=== PATIENT | male | born 1975 | race Caucasian/White ===

== ENCOUNTER 2021-04-09 16:17 | Emergency (ER) | payer OTHER ==
[~2021-04-09] VITALS: Ht 175.3 cm; Wt 81.7 kg
[2021-04-09] MEDS ORDERED: LEVO-T100 MCG PO (16:34)
[2021-04-09 16:54] LABS: HEMATOCRIT 49.3 % (42.0-52.0); HEMOGLOBIN 16.6 gm/dL (14.0-18.0); MCH 31.3 pg (26.0-34.0); MCHC 33.8 g/dL (28.0-37.0); MCV 92.8 fL (80.0-100.0); MPV 8.7 fl. (7.2-11.1); NUCLEATED RBCS 0 /100WBC; PLATELET COUNT* 239 thou/uL (150-400); RBC 5.31 mil/uL (4.50-6.00); RDW-CV 14.5 % (10.5-14.5); WBC 22.3 thou/uL (4.0-11.0)
[2021-04-09 17:00] LABS: CALCIUM 8.4 mg/dL (8.5-10.1); CREATININE 1.3 mg/dL (0.6-1.3); POTASSIUM 3.5 mmol/L (3.5-5.1)
[2021-04-09 17:04] LABS: ALBUMIN 4.5 g/dL (3.4-5.0); TOTAL BILIRUBIN 0.3 mg/dL (<0.1-1.0); TOTAL PROTEIN 7.7 g/dL (6.4-8.2)
[2021-04-09 17:11] LABS: ABSOLUTE LYMPHOCYTES 2.2 thou/uL (0.8-5.3); ABSOLUTE MONOCYTES 1.1 thou/uL (0.0-1.2); ATYPICAL LYMPHS 2 %
[2021-04-09 17:12] LABS: PLATELET ESTIMATE ADEQUATE
[2021-04-09] MEDS ORDERED: PERCOCET PO (18:57)
[2021-04-09] MEDS ORDERED: IBUPROFEN 800800 M1 PO (19:09)
[2021-04-09 20:11] VITALS: BP 110/58
== END 2021-04-09 20:11 | disposition home or self-care (01) ==
LOC: M.ERS 16:17
PROVIDERS: Nurse Practitioner Family
DX: S42.102A Fracture of unspecified part of scapula, left shoulder, initial encounter for closed fracture (principal); S82.832A Other fracture of upper and lower end of left fibula, initial encounter for closed fracture; S42.002A Fracture of unspecified part of left clavicle, initial encounter for closed fracture; S22.32XA Fracture of one rib, left side, initial encounter for closed fracture; S01.01XA Laceration without foreign body of scalp, initial encounter; V29.49XA Motorcycle driver injured in collision with other motor vehicles in traffic accident, initial encounter; Y93.I9 Activity, other involving external motion; Y92.488 Other paved roadways as the place of occurrence of the external cause; Y99.8 Other external cause status